=== PATIENT | male | born 1955 | race Caucasian/White ===

== ENCOUNTER 2020-04-09 22:42 | Emergency (ER) | payer SELFPAY ==
[2020-04-09] MEDS ORDERED: ASPIRIN 81 MG TABLET, CHEWABLE PO ONE (22:59)
[2020-04-09] MEDS ORDERED: NORMAL SALINE 1000 ML 1,000 ML IV ONE (22:59)
--- NOTE | 2020-04-09 23:01 | ER Document Report ---
ED General - General Chief Complaint: Numbness of Arm Stated Complaint: NUMBNESS OF RIGHT SIDE OF HEAD Time Seen by Provider: 04/09/20 22:52 Primary Care Provider: RAMONE ENCISO [NO LOCAL MD] - Follow up as needed Mode of Arrival: [facility] called to the house because of chest pain call out Information source: Patient, Emergency Med Personnel Notes: 64-year-old male arrives with chief complaint of numbness of his right upper extremity right lower extremity and mild facial droop slurring of speech on the right face. Patient reports this began around 2100 hrs. tonight. He reports he smokes 2 packs of cigarettes per day [employer] and used to smoke Marlboros; he has not seen a doctor in over 40 years. Patient took 1 aspirin prior to arrival this is 81 mg p.o. chewable. Patient is very diaphoretic. He denies any chest pain but has a blood pressure of 223/118. He reports he had similar symptoms around 2 weeks ago which self resolved over 2 days. EMS was called out because of chest pain report when they found the patient walking to them with no shift problems or gait problems and they were able to understand his speech. EKG revealed 90 normal sinus rhythm with occasional PVC and left axis abnormality and LVH and prolonged QT. CT scan was called negative per radiologist at 2305 but also patient has nasal sinus disease. I advised that patient has 8 cats in the house and leaves his windows open for proper ventilation. Also patient closes door at night but does not use air conditioning. Patient reports the area here is much cooler in room 12 and is no longer diaphoretic. [facility] was called at approximately 1110 and by 1120 speak with Jessica JORGENSEN. She advises CTA of head and neck and no TPA. We will continue with nicardipine to get his blood pressure regulated. I spoke with Dr. Haq at 2350 at [facility] and he advises not dropping his blood pressure more than 25%. He also advises continuing to get the CTA . TRAVEL OUTSIDE OF THE [place] IN LAST 30 DAYS: No - HPI Onset: This evening Onset/Duration: Sudden, Persistent, Worse Quality of pain: Achy Severity: Moderate Pain Level: 2 Associated symptoms: Weakness, Other - Right upper and lower extremity numbness Exacerbated by: Movement, Deep breathing Relieved by: Denies Similar symptoms previously: Yes Recently seen / treated by doctor: No - Related Data Allergies/Adverse Reactions: No Known Allergies Allergy (Unverified 04/09/20 23:12) Past Medical History - General Information source: Patient - Social History Smoking Status: Current Every Day Smoker Cigarette use (# per day): Yes Chew tobacco use (# tins/day): No Smoking Education Provided: Yes Frequency of alcohol use: None Drug Abuse: None Lives with: Family Family History: Reviewed & Not Pertinent Patient has suicidal ideation: No Patient has homicidal ideation: No Review of Systems - Review of Systems Constitutional: See HPI, Weakness EENT: No symptoms reported Cardiovascular: No symptoms reported Respiratory: No symptoms reported Gastrointestinal: No symptoms reported Genitourinary: No symptoms reported Male Genitourinary: No symptoms reported Musculoskeletal: No symptoms reported Skin: No symptoms reported Hematologic/Lymphatic: No symptoms reported Neurological/Psychological: See HPI, Weakness, Other - Right facial droop Physical Exam - Vital signs Vitals: Resp 20 04/09/20 22:48 Interpretation: Normal - General General appearance: Appears well, Alert - HEENT Head: Normocephalic, Atraumatic Eyes: Normal Pupils: PERRL - Respiratory Respiratory status: No respiratory distress Chest status: Nontender Breath sounds: Normal Chest palpation: Normal - Cardiovascular Rhythm: Regular Heart sounds: Normal auscultation Murmur: No - Abdominal Inspection: Normal Distension: No distension Bowel sounds: Normal Tenderness: Nontender Organomegaly: No organomegaly - Rectal Prostate: Other - deferred - Genitourinary Scrotum: Other - deferred - Back Back: Normal, Nontender - Extremities General upper extremity: Normal color, Normal ROM, Normal temperature, Other - 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 No: Kem's sign - Neurological Neuro grossly intact: Yes Cognition: Normal Orientation: AAOx4 Bucks Coma Scale Eye Opening: Spontaneous Daren Coma Scale Verbal: Oriented Bucks Coma Scale Motor: Obeys Commands Bucks Coma Scale Total: 15 Speech: Normal Motor strength normal: LUE, RUE, LLE, RLE Sensory: Normal - Psychological Associated symptoms: Normal affect, Normal mood - Skin Skin Temperature: Warm Skin Moisture: Dry Skin Color: Normal Course - Vital Signs Vital signs: Temp Pulse Resp BP Pulse Ox 98.2 F 90 16 181/90 H 95 04/09/20 22:53 04/09/20 23:25 04/10/20 01:11 04/10/20 01:11 04/10/20 01:11 - Laboratory Result Diagrams: 04/09/20 22:52 04/09/20 22:52 Laboratory results interpreted by me: 04/09/20 04/09/20 04/09/20 22:52 22:52 22:52 Glucose 124 H POC Glucose 126 H Creatine Kinase 457 H NT-Pro-B Natriuret Pep 447 H - Diagnostic Test Radiology reviewed: Reports reviewed - CT head was negative CTA head and neck were positive for sinus disease. Critical Care Note - Critical Care Note Comments: I spoke with Dr. Pratibha Steen at @ 0125 and she accepted the patient. She is hospitalist at [facility]. She advises stopping the nicardipine drip and observing for any increase in pressure if it reaches 220 systolic to continue with drip but for right now we will hold the drip so he may be transferred to [facility]. Discharge - Discharge Clinical Impression: Symptoms of cerebrovascular accident (CVA), Sinus disease Hypertension Qualifiers: Hypertension type: unspecified Qualified Code(s): I10 - Essential (primary) hypertension Condition: Stable Disposition: [facility] Additional Instructions: Transfer this patient to [facility] and wean down nicardipine drip Referrals: ZARIA,NO [NO LOCAL MD] - Follow up as needed
[2020-04-09 23:02] LABS: ABSOLUTE BASOPHILS # (AUTO) 0.1 10^3/uL (0.0-0.2); ABSOLUTE EOSINOPHILS # (AUTO) 0.3 10^3/uL (0.0-0.6); ABSOLUTE LYMPHOCYTES (AUTO) 2.9 10^3/uL (0.5-4.7); ABSOLUTE MONOCYTES (AUTO) 0.9 10^3/uL (0.1-1.4); ABSOLUTE NEUT (AUTO) 5.1 10^3/uL (1.7-8.2); BASOPHILS % (AUTO) 0.6 % (0-2); EOSINOPHILS % (AUTO) 3.6 % (0-6); HEMATOCRIT 46.7 % (37.9-51.0); HEMOGLOBIN 16.4 g/dL (13.5-17.0); LYMPHOCYTES % (AUTO) 31.6 % (13-45); MEAN CORPUSCULAR HEMOGLOBIN 30.7 pg (27.0-33.4); MEAN CORPUSCULAR HGB CONC 35.2 g/dL (32.0-36.0); MEAN CORPUSCULAR VOLUME 87 fl (80-97); MONOCYTES % (AUTO) 9.6 % (3-13); PLATELET COUNT 244 10^3/uL (150-450); RED BLOOD COUNT 5.35 10^6/uL (4.35-5.55); SEGMENTED NEUTROPHILS % (AUTO) 54.6 % (42-78); TOTAL CELLS COUNTED % (AUTO) 100 %; WHITE BLOOD COUNT 9.3 10^3/uL (4.0-10.5)
--- NOTE | 2020-04-09 23:06 | RADIOLOGY REPORT (SQ) ---
EXAM DESCRIPTION: CT HEAD WITHOUT IV CONTRAST COMPLETED DATE/TME: 04/09/2020 00:00 CLINICAL HISTORY: 64 years, Male, STROKE ALERT COMPARISON: None. TECHNIQUE: Noncontrast axial, coronal, and sagittal of the head were obtained. Images stored on PACS. All CT scanners at this facility use dose modulation, iterative reconstruction, and/or weight based dosing when appropriate to reduce radiation dose to as low as reasonably achievable (ALARA). [facility]: Dose Right [facility]: CareDose [facility]: Dose Right [facility]: Teradose 4D [facility]: [employer] LIMITATIONS: None. FINDINGS: There is no acute intracranial hemorrhage, abnormal mass effect, or major vascular territorial infarction. The ventricular system and extra axial spaces appear within normal limits. The calvarium is intact. There is mild bilateral sphenoid sinus mucosal thickening measuring up to 5 mm. There is also [id number] bilateral ethmoid sinus mucosal thickening, greater on the right. IMPRESSION: 1. No acute intracranial abnormality is seen. 2. Evidence of paranasal sinus disease. TECHNICAL DOCUMENTATION: Quality ID # [id number]: Final reports with documentation of one or more dose reduction techniques (e.g., Automated exposure control, adjustment of the mA and/or kV according to patient size, use of iterative reconstruction technique) copyright 2011 [employer]- All Rights Reserved
[2020-04-09] MEDS: NICARDIPINE HCL RTU, ISO-OS 20 MG/200 ML RTUINJ IV PRN (23:09)
[2020-04-09 23:14] LABS: INTERNATIONAL RATION (INR) 0.91; PROTHROMBIN TIME 12.5 SEC (11.4-15.4)
[2020-04-09 23:15] LABS: PARTIAL THROMBOPLASTIN TIME 26.2 SEC (23.5-35.8)
--- NOTE | 2020-04-09 23:16 | RADIOLOGY REPORT (SQ) ---
EXAM DESCRIPTION: XR CHEST 1 VIEW COMPLETED DATE/TME: 04/09/2020 00:00 CLINICAL HISTORY: STROKE ALERT COMPARISON: None. FINDINGS: Single frontal radiograph view of the chest. Cardiomediastinal silhouette: Atherosclerotic calcification of the thoracic aorta. Heart is not enlarged. Lungs: No consolidation, pneumothorax, or pleural effusion. Bones: No acute osseous abnormality. Upper abdomen: No abnormality identified. IMPRESSION: 1. No acute pulmonary process identified.
[2020-04-09 23:24] LABS: ALBUMIN 4.9 g/dL (3.5-5.0); ALKALINE PHOSPHATASE 74 U/L (38-126); ANION GAP 10 (5-19); ASPARTATE AMINO TRANSFERASE 36 U/L (17-59); BILIRUBIN,DIRECT 0.2 mg/dL (0.0-0.4); BILIRUBIN,TOTAL 0.4 mg/dL (0.2-1.3); BLOOD UREA NITROGEN 15 mg/dL (7-20); CALCIUM 9.5 mg/dL (8.4-10.2); CARBON DIOXIDE 27 mmol/L (22-30); CHLORIDE 100 mmol/L (98-107); CREATINE KINASE 457 U/L (55-170); GLUCOSE 124 mg/dL (75-110); POTASSIUM 3.9 mmol/L (3.6-5.0); TOTAL PROTEIN 8.1 g/dL (6.3-8.2)
[2020-04-09 23:36] LABS: TROPONIN I 0.033 ng/mL
[2020-04-10 00:18] LABS: APPEARANCE,URINE CLEAR; BILIRUBIN,URINE NEGATIVE (NEGATIVE); COLOR,URINE STRAW; GLUCOSE, URINE NEGATIVE (NEGATIVE); KETONES,URINE NEGATIVE (NEGATIVE); LEUKOCYTE ESTERASE,URINE NEGATIVE (NEGATIVE); NITRITE,URINE NEGATIVE (NEGATIVE); PROTEIN,URINE NEGATIVE (NEGATIVE); URINE SPECIFIC GRAVITY 1.005; UROBILINOGEN,URINE NEGATIVE mg/dL (<2.0)
--- NOTE | 2020-04-10 00:39 | RADIOLOGY REPORT (SQ) ---
EXAM: 1. CT neck angiography with intravenous contrast. 2. CT head angiography with intravenous contrast. CLINICAL DATA: 64 years Male cva. TECHNICAL DATA: Following dynamic intravenous nonionic contrast infusion, multiple axial helical CT images with multiplanar reconstructions were obtained through the head and neck. Coronal and sagittal MIP images were performed. The CT study is performed according to ALARA (as low as reasonably achievable) or ALARA/IMAGE GENTLY, with automatic adjustment of mA and/or kV according to patient size. Performed on: 04/09/2020 23:30 COMPARISONS: Head CT performed on 04/09/2020 at 10:43 PM FINDINGS: CTA NECK: AORTA: The aortic arch is well imaged and demonstrates conventional branching. The origins of the left subclavian artery, left common carotid artery and innominate artery are patent. VERTEBRAL ARTERIES: The LEFT vertebral artery is normal in caliber and contour without evidence of dissection or significant stenosis. The RIGHT vertebral artery is normal in caliber and contour without evidence of dissection or significant stenosis. CAROTID ARTERIES: The LEFT common carotid artery is unremarkable. There is no evidence of stenosis, dissection or occlusion The carotid bulb demonstrates minimal calcified atherosclerotic plaque. The LEFT internal carotid artery is normal in caliber and contour without evidence of significant stenosis, dissection or occlusion. The LEFT external carotid artery is unremarkable. The RIGHT common carotid artery is unremarkable. There is no evidence of stenosis, dissection or occlusion. The carotid bulb demonstrates minimal calcified atherosclerotic plaque. The RIGHT internal carotid artery is unremarkable. There is no evidence of stenosis, dissection or occlusion. The RIGHT external carotid artery is unremarkable. CTA HEAD: LEFT: INTERNAL CAROTID ARTERY: The distal internal carotid artery is unremarkable. ANTERIOR CEREBRAL ARTERY:The A1 segment is normal in caliber and contour. The A2 segment is normal in caliber and contour. The region of the anterior communicating artery is unremarkable. MIDDLE CEREBRAL ARTERY: The M1 segment is normal in caliber and contour. The M2 branches normal in caliber and contour. POSTERIOR CEREBRAL ARTERY:The P1 segment is normal in caliber and contour. The P2 segment is normal in caliber and contour. The left posterior communicating artery is patent. VERTEBRAL ARTERY: The intradural left vertebral artery is normal in caliber and contour. RIGHT: INTERNAL CAROTID ARTERY: The distal internal carotid artery is unremarkable. ANTERIOR CEREBRAL ARTERY: The A1 segment is normal in caliber and contour. The A2 segment is normal in caliber and contour. MIDDLE CEREBRAL ARTERY:The M1 segment is normal in caliber and contour. The M2 branches normal in caliber and contour. POSTERIOR CEREBRAL ARTERY: The P1 segment is normal in caliber and contour. The P2 segment is normal in caliber and contour. The right posterior communicating artery is hypoplastic. VERTEBRAL ARTERY: The intradural right vertebral artery is normal in caliber and contour. BASILAR ARTERY: The basilar artery is normal in caliber and contour. DURAL VENOUS SINUSES: The dural venous sinuses are patent. NON-ANGIOGRAPHIC FINDINGS: The lung apices are clear. The thyroid gland is within normal limits. There are mild to moderate degenerative changes of the lower cervical spine. There is mild to moderate mucosal thickening of the sphenoid and ethmoid sinuses and left frontal sinus. The mastoid air cells are clear. There are no focal pathologic areas of enhancement within the brain. IMPRESSION: CTA NECK: 1. Normal CTA of the neck. There is no evidence of stenosis as per the NASCET criteria. 2. Mild to moderate degenerative changes of the lower cervical spine. CTA HEAD: 1. Normal intracranial CTA. 2. Mild to moderate mucosal thickening of the sphenoid and ethmoid sinuses and left frontal sinus.
[2020-04-10] MEDS ORDERED: MORPHINE SULFATE 10 MG/ML INJ IV ONE (00:44)
[2020-04-10] MEDS: NICARDIPINE HCL RTU, ISO-OS 20 MG/200 ML RTUINJ IV PRN (01:11)
[2020-04-10 07:42] VITALS: BP 204/111
--- NOTE | 2020-04-10 07:50 | ER Document Report ---
Doctor's Note Notes: 04/10/20 07:49 Transport team is at bedside to transfer patient to the receiving facility. Patient's vital signs shows blood pressure of 204/111. Patient is alert and oriented not showing any signs of distress at this time moving all extremities. Patient stable for transfer.
--- NOTE | 2020-04-10 08:48 | EKG REPORT ---
SEVERITY:- ABNORMAL ECG - SINUS RHYTHM VENTRICULAR PREMATURE COMPLEX PROBABLE LEFT ATRIAL ABNORMALITY LEFT ANTERIOR FASCICULAR BLOCK ANTERIOR INFARCT, OLD : Confirmed by: Robert Mccoy MD 10-Apr-2020 08:46:58
== END 2020-04-10 07:45 | disposition short-term general hospital (02) ==
LOC: ER 22:42
DX: I11.9 Hypertensive heart disease without heart failure (principal); R20.0 Anesthesia of skin; R29.810 Facial weakness; I49.3 Ventricular premature depolarization; J32.9 Chronic sinusitis, unspecified; M47.812 Spondylosis without myelopathy or radiculopathy, cervical region; F17.210 Nicotine dependence, cigarettes, uncomplicated; R61 Generalized hyperhidrosis
CPT/HCPCS: 93005; 99285; 96361; 96375; 96365; 96366; 36415; 82962; 82550; 83605; 85025; 85610; 85730; 80053; 81001; 84484; 83880; 71045; 70450; 70496; 70498; 93010; J2270; J7030; J3490 ×2